=== PATIENT | male | born 1950 | race Caucasian/White ===

== ENCOUNTER → 2016-07-21 | Outpatient (CLI) | payer OTHER ==
[~2016-07-21] MED LIST: ACET-1311 PO; CYCL0.052 OPB; FAMO40TA6 PO; FENO160T PO; LVT/20 PO; MULT-506 PO; OXYC-57 PO; REFRESH OPB; VALS160T58 PO; [UNRECOGNIZED DRUG - CODE] PO
== END | disposition home or self-care (01) ==
LOC: C.LAB 11:42
PROVIDERS: ATTEND Urology
DX: C61 Malignant neoplasm of prostate (principal); N30.40 Irradiation cystitis without hematuria; K40.91 Unilateral inguinal hernia, without obstruction or gangrene, recurrent; D17.6 Benign lipomatous neoplasm of spermatic cord; E78.00 Pure hypercholesterolemia, unspecified; I10 Essential (primary) hypertension; N52.9 Male erectile dysfunction, unspecified; Z85.46 Personal history of malignant neoplasm of prostate; Z90.49 Acquired absence of other specified parts of digestive tract; Z90.5 Acquired absence of kidney; Z80.3 Family history of malignant neoplasm of breast; Z82.49 Family history of ischemic heart disease and other diseases of the circulatory system

== ENCOUNTER 2016-07-29 05:12 | Day surgery (SDC) | payer OTHER ==
[2016-07-21 12:12] LABS: BASO % 0.4 %; BASO ABS # 0.03 K/uL (0-0.2); COMPLETE YES; EOS % 1.8 %; HEMATOCRIT 44.6 % (42-52); IG% 0.4 %; LYMPH % 20.9 %; LYMPH ABS # 1.43 K/uL (1.2-3.4); MEAN CELL VOLUME 91.8 fL (80-100); MEAN CORPUSCULAR HEMOGLOBIN 32.7 pg (25-34); MEAN CORPUSCULAR HGB CONC 35.7 g/dl (32-36); MEAN PLATELET VOLUME 10.2 fL (7.4-10.4); MONO % 10.7 %; NEUT % 65.8 %; PLATELET COUNT 229 K/uL (130-400); RED BLOOD COUNT 4.86 M/uL (4.7-6.1); WHITE BLOOD COUNT 6.84 K/uL (4.8-10.8)
--- NOTE | 2016-07-21 12:36 | PAT Medication Instructions ---
Service Date Jul 21, 2016. Current Home Medication List Acetaminophen (Tylenol), 325 MG PO DIRECTED Chlorpheniramine-Acetaminophen (Ra Cold & Flu 2-325 mg), 1 TAB PO BID PRN for N Cyclosporine (Ophth) (Restasis), 1 DROP OPB BID Famotidine (Pepcid), 40 MG PO QPM Fenofibrate (Tricor), 160 MG PO QAM Multivitamin (Multivitamin), 1 TAB PO QAM Valsartan/Hctz (Diovan Hct 160MG/12.5MG), 1 TAB PO QAM Vardenafil (Levitra), 20 MG PO DIRECTED Medication Instructions For Your Scheduled Surgery - Hold the following medications the morning of surgery: Valsartan/Hctz (Diovan Hct 160MG/12.5MG), 1 TAB PO QAM Multivitamin (Multivitamin), 1 TAB PO QAM Fenofibrate (Tricor), 160 MG PO QAM Chlorpheniramine-Acetaminophen (Ra Cold & Flu 2-325 mg), 1 TAB PO BID PRN for N Vardenafil (Levitra), 20 MG PO DIRECTED - Take the following medications the morning of surgery with a sip of water: Cyclosporine (Ophth) (Restasis), 1 DROP OPB BID Acetaminophen (Tylenol), 325 MG PO DIRECTED - Take the following medications as scheduled the night before surgery: Famotidine (Pepcid), 40 MG PO QPM Cyclosporine (Ophth) (Restasis), 1 DROP OPB BID Chlorpheniramine-Acetaminophen (Ra Cold & Flu 2-325 mg), 1 TAB PO BID PRN for N Acetaminophen (Tylenol), 325 MG PO DIRECTED Vardenafil (Levitra), 20 MG PO DIRECTED If you have any questions please call us at [phone] (Allie Jean-Baptiste PA-C) or [phone] or [phone]
[2016-07-21 12:42] LABS: BUN/CREATININE RATIO 14.3 (10-20); CALCIUM 9.9 mg/dl (8.5-10.1); CREATININE 1.6 mg/dl (0.60-1.40); POTASSIUM 4.1 mmol/L (3.5-5.1)
--- NOTE | 2016-07-21 13:22 | DIAGNOSTIC IMAGING REPORT ---
CHEST PREADMISSION(PA/LAT) CLINICAL HISTORY: Preoperative evaluation COMPARISON STUDY: Chest radiograph September 21, 2012 FINDINGS: Mild elevation of the right hemidiaphragm is unchanged. There is no pneumothorax or pleural effusion. There is no evidence of pulmonary edema. Cardiac size is normal. Mediastinal contours are normal. No consolidation is identified. The appearance of the chest is unchanged. IMPRESSION: No acute cardiopulmonary findings. Electronically signed by: Gilbert Mei M.D. 07/21/2016 1:20 PM
[~2016-07-29] VITALS: Ht 182.9 cm; Wt 99.7 kg
[~2016-07-29 05:12] MED LIST changes: -OXYC-57 PO; -REFRESH OPB
[2016-07-29] MEDS ORDERED: REFRESH OPB (05:41)
[2016-07-29 05:45] VITALS: BP 166/81; PULSE 81; TEMP 37.1; O2SAT 95; Ht 182.9 cm; Wt 99.7 kg
[2016-07-29] MEDS ORDERED: LACTATED RINGER'S 1000ML 1,000 ML IV SCH ×2 (06:00→08:30)
--- NOTE | 2016-07-29 06:24 | History & Physical Bridge Note ---
H&P Re-Evaluation Bridge Note: I have examined the patient, reviewed the History & Physical and in the interval since the performance of the History & Physical I have noted the following changes of clinical significance: No changes noted pt marked to be around
[2016-07-29] MEDS ORDERED: PROPOFOL IV EMULSION 10 MG/ML 20 ML VIAL IV ONE (06:54)
[2016-07-29] MEDS ORDERED: LIDOCAINE HCL 2% 2 ML VIAL (20MG/ML) ONE (06:54)
[2016-07-29] MEDS ORDERED: FENTANYL CITRATE INJ 50 MCG/1 ML 2 ML VIAL ONE ×2 (06:55→07:47)
[2016-07-29] MEDS ORDERED: MIDAZOLAM HCL 1 MG/ML 2ML VIAL ONE (06:55)
[2016-07-29] MEDS ORDERED: SUCCINYLCHOLINE 100MG/5ML SYR IV ONE (07:48)
[2016-07-29] MEDS ORDERED: PHENYLEPHRINE 100MCG/ML 5ML SYR ONE (08:14)
[2016-07-29] MEDS ORDERED: EpHEDrine SULFATE 50MG/5ML SYR ONE (08:14)
[2016-07-29] MEDS ORDERED: BACITRACIN 50000 UNIT VIAL IR ONE (08:15)
[2016-07-29] MEDS ORDERED: BUPIVACAINE 0.5 % 5 MG/1 ML MPF 30ML VIAL INJ ONE (08:15)
[2016-07-29] MEDS ORDERED: ONDANSETRON INJ 2 MG/ML 2 ML VIAL IV PRN ×2 (08:30→09:00)
[2016-07-29] MEDS ORDERED: MoRPHine SULFATE 2 MG/ML CARP IV PRN (08:30)
[2016-07-29] MEDS ORDERED: OXYCODONE/ACETAMINOPHEN 5-325 TAB PO PRN (08:30)
[2016-07-29] MEDS ORDERED: OXYC-57 PO (08:32)
--- NOTE | 2016-07-29 08:34 | Discharge Instructions ---
Discharge Instructions Visit Reason for Visit: Recurrent Right Inguinal Hernia Discharge Discharge Diagnosis / Problem: repair of hernia with mesh Discharge Goals Goal(s): Decrease discomfort Activity Recommendations Activity Limitations: per Instructions/Follow-up section Lifting Limitations: no more than 10 pounds Shower/Bathe: tomorrow Driving or Machine Use: resume 3 days after discharge Anesthesia . Post Anesthesia Instructions: If you have had General Anesthesia or IV Sedation: * Do not drive today. * Resume driving when surgeon permits. * Do not make important decisions or sign legal documents today. * Call surgeon for: 1. Temperature elevations greater than 101 degrees F. 2. Uncontrollable pain. 3. Excessive bleeding. 4. Persistent nausea and vomiting. 5. Medication intolerance (nausea, vomiting or rash). * For nausea and vomiting use only clear liquids such as: tea, soda, bouillon until nausea subsides, then gradually increase diet as tolerated. * If you have any concerns or questions, call your surgeon's office. If physician is unavailable and it is an emergency, call 911 or go to the nearest emergency room. . Instructions / Follow-Up Instructions / Follow-Up Dr. Garcia in 1 week, call [phone] if you do not already have an appt Ice groin off and on alternating every 20 minutes until bedtime Diet Recommendations Recommended Home Diet: no limitations Procedures Procedures Performed: Right Recurrent Open Direct Inguinal Hernia Repair with ProLite Mesh and Excision of Lipoma of the Cord Pending Studies Studies pending at discharge: no Medical Emergencies . Who to Call and When: Medical Emergencies: If at any time you feel your situation is an emergency, please call 911 immediately. . Non-Emergent Contact Non-Emergency issues call your: Surgeon Call Non-Emergent contact if: you have a fever, temperature is above 101.5, your pain is not controlled, wound has increased redness, wound has increased pain . . "Provider Documentation" section prepared by Charan Bermudez.
--- NOTE | 2016-07-29 08:37 | [facility] Post Operative Brief Note ---
Immediate Operative Summary Operative Date Jul 29, 2016. Pre-Operative Diagnosis Recurrent Right Inguinal Hernia Post-Operative Diagnosis Right Recurrent Direct Inguinal Hernia and Lipoma of the Cord Procedure(s) Performed Right Recurrent Open Direct Inguinal Hernia Repair with ProLite Mesh (plug and patch)and Excision of Lipoma of the Cord Surgeon Dr. Mamadou Garcia Trainman Surgeon(s) Charan Bermudez PA-C Estimated Blood Loss 5mL Findings large direct defect involving the whole floor Specimens A: Cord Lipoma Anesthesia 1 %xyl preemptive
[2016-07-29] MEDS ORDERED: LACTATED RINGER'S 1000ML 1,000 ML IV ONE (08:45)
--- NOTE | 2016-07-29 08:48 | Anesthesiology Progress Note ---
Anesthesia Post Op Note Date & Time Jul 29, 2016 at 08:47 Vital Signs Pain Intensity: 0 Vital Signs Past 12 Hours Date Time Temp Pulse Resp B/P Pulse Ox O2 Delivery O2 Flow Rate FiO2 07/29/16 05:45 37.1 81 20 166/81 95 Room Air Notes Mental Status: alert / awake / arousable, participated in evaluation Pt Amnestic to Procedure: Yes Nausea / Vomiting: adequately controlled Pain: adequately controlled Airway Patency, RR, SpO2: stable & adequate BP & HR: stable & adequate Hydration State: stable & adequate Anesthetic Complications: no major complications apparent
--- NOTE | 2016-07-29 08:52 | Medical Student: [facility] ---
Immediate Operative Summary Operative Date Jul 29, 2016. Pre-Operative Diagnosis Recurrent Right Inguinal Hernia Post-Operative Diagnosis Recurrent Right Inguinal Hernia, Spermatic Lipoma Procedure(s) Performed Open right inguinal hernia reduction, mesh implant, removal of lipoma Surgeon Dr. Garcia Men[employer] Coach Surgeon(s) Charan Bermudez Estimated Blood Loss 5mL Findings Lipoma, samples obtained. Specimens Lipoma Anesthesia General Disposition Recovery Room / PACU
[2016-07-29] MEDS ORDERED: HYDROmorphone INJ 1 MG/ML SYR ONE (08:55)
[2016-07-29] MEDS: HYDROmorphone INJ 2 MG/ML SYR/VIAL IV PRN ×2 (08:57→09:10)
[2016-07-29] MEDS ORDERED: EpHEDrine SULFATE INJ 50 MG/ML AMP IV PRN (09:00)
[2016-07-29] MEDS ORDERED: ATROPINE SULFATE 0.1 MG/ML 5ML SYR IV PRN (09:00)
[2016-07-29] MEDS ORDERED: PHENYLEPHRINE 100MCG/ML 5ML SYR IV PRN (09:00)
--- NOTE | 2016-07-29 09:11 | OPERATIVE REPORT ---
DATE OF OPERATION: 07/29/2016 PREOPERATIVE DIAGNOSIS: Recurrent right inguinal hernia. POSTOPERATIVE DIAGNOSIS: Recurrent right direct inguinal hernia, lipoma of the cord. PROCEDURE: Repair with patch and plug technique with Marlex and excision lipoma of the cord. SURGEON: Dr. Garcia. MANGA ARTIST: Rivera Bermudez PA-C. OPERATION AND FINDINGS: SUMMARY: The patient was brought into the operating room. Right lower quadrant was scrubbed solution and properly draped. Systemic antibiotics was given. Had LMA anesthesia. We used some preemptive local analgesia 1% Xylocaine with epinephrine to infiltrate 2 fingerbreadths medial anterior superior iliac crest and subfascial external oblique and some would be used later in the intramuscular area. At this point, we made an incision curvilinear and parallel to the inguinal ligament, deepened through subcutaneous tissue. Some vessels were ligated with 2-0 silk. We went down through the Tierra's fascia onto the external oblique, more local was used underneath the external oblique. The external oblique was opened along the course of its fibers. As soon as we opened it we could see bulging of the fatty tissue through this area. We took it all the way up to the external ring where we elevated the 2 flaps of the external oblique with hemostats and there was identified, it was very frail looking. We placed underneath hemostats. We took it off the operative field. At this point, we then elevated the cord and its structures and identified over a Leticia drain. We identified the patient had significant, pretty much the whole wall defect in the indirect area. Just to get this out of the way we returned it retroperitoneally, closed loosely with interrupted 3-0 silk sutures to get out of our way. Attention was turned to the internal ring where I felt that we used a piece of Marlex mesh and cut it appropriately and placed it in the indirect area. I used a silk suture to take control of it until we would suture it together to the patch. We then went on around the cord towards the internal ring where we identified some of the lipomatous tissue coming along the cord we resected it. We then closed the internal ring with interrupted 3-0 silk suture. At this point a sheet of Marlex mesh was brought onto the field and onlaid down to the symphysis pubis, shelving portion of the inguinal ligament around the internal ring area to reconstruct it, could only accommodate the tip of a hemostat. We then elevated the silk suture that was holding onto the plug and then sutured that onto the patch with another 3-0 silk suture. Of note, there was no indirect hernia. The area was checked for hemostasis and appeared satisfactory. We returned the cord underneath the external oblique fascia along with the nerve. Local anesthetic was used around the conjoined tendon superiorly. Of note, we intentionally left the Marlex mesh a little bit loose. Of note, also once we were starting to repair the patient needed to be converted to a general anesthetic because he was pushing too much to do the procedure. Subcutaneous tissue closed with 2-0 Vicryl and joyce for skin edges. Dressing was applied. The procedure was tolerated well by the patient. Estimated blood loss approximately 5 mL. The patient was taken to recovery room in good condition. I attest to the content of the Intraoperative Record and any orders documented therein. Any exceptio ns are noted below.
[2016-07-29 09:30] VITALS: BP 135/84; PULSE 74; TEMP 36.7; O2SAT 93
[2016-07-29] MEDS ORDERED: ACETAMINOPHEN 325 MG TAB ONE (09:52)
[2016-07-29 10:00] VITALS: BP 131/84; PULSE 75; O2SAT 95
[2016-07-29] MEDS ORDERED: NURSING VERBAL MED ORDER ONE (10:00)
[2016-07-29 10:30] VITALS: BP 148/87; PULSE 71; TEMP 36.8; O2SAT 97
== END 2016-07-29 11:00 | disposition home or self-care (01) ==
LOC: C.ACU 05:12
PROVIDERS: ATTEND Surgery
DX: K40.91 Unilateral inguinal hernia, without obstruction or gangrene, recurrent (principal); D17.6 Benign lipomatous neoplasm of spermatic cord; E78.00 Pure hypercholesterolemia, unspecified; I10 Essential (primary) hypertension; N52.9 Male erectile dysfunction, unspecified; Z85.46 Personal history of malignant neoplasm of prostate; Z90.49 Acquired absence of other specified parts of digestive tract; Z90.5 Acquired absence of kidney; Z80.3 Family history of malignant neoplasm of breast; Z82.49 Family history of ischemic heart disease and other diseases of the circulatory system

== ENCOUNTER 2016-09-16 07:57 | Day surgery (SDC) | payer OTHER ==
[~2016-09-16] VITALS: Ht 182.9 cm; Wt 99.7 kg
[~2016-09-16 07:57] MED LIST changes: -ACET-1311 PO; +LACTATED RINGER'S 1000ML 1,000 ML IV SCH; +REFRESH OPB; -[UNRECOGNIZED DRUG - CODE] PO
[2016-09-16 08:31] VITALS: BP 143/78; PULSE 73; TEMP 37; O2SAT 96; Ht 182.9 cm; Wt 99.7 kg
[2016-09-16] MEDS ORDERED: LIDOCAINE HCL 2% 2 ML VIAL (20MG/ML) ONE (08:33)
[2016-09-16] MEDS ORDERED: PROPOFOL IV EMULSION 10 MG/ML 20 ML VIAL IV ONE (08:33)
[2016-09-16] MEDS ORDERED: DEXAMETHASONE SOD INJ 4 MG/ML VIAL ONE (08:33)
[2016-09-16] MEDS ORDERED: FENTANYL CITRATE INJ 50 MCG/1 ML 2 ML VIAL ONE ×2 (08:33→12:33)
[2016-09-16] MEDS ORDERED: MIDAZOLAM HCL 1 MG/ML 2ML VIAL ONE (08:33)
[2016-09-16] MEDS ORDERED: ONDANSETRON INJ 2 MG/ML 2 ML VIAL ONE (08:33)
--- NOTE | 2016-09-16 10:23 | History & Physical Bridge Note ---
H&P Re-Evaluation Bridge Note: I have examined the patient, reviewed the History & Physical and in the interval since the performance of the History & Physical I have noted the following changes of clinical significance: No changes noted pt marked times 2 at bedside
[2016-09-16] MEDS ORDERED: LACTATED RINGER'S 1000ML 1,000 ML IV PRN (10:25)
[2016-09-16] MEDS ORDERED: FENTANYL CITRATE INJ 50 MCG/1 ML 2 ML VIAL IV PRN (10:30)
[2016-09-16] MEDS ORDERED: ONDANSETRON INJ 2 MG/ML 2 ML VIAL IV PRN ×2 (10:30→12:45)
[2016-09-16] MEDS ORDERED: BACITRACIN 50000 UNIT VIAL ONE (10:46)
[2016-09-16] MEDS ORDERED: BUPIVACAINE 0.5 % 5 MG/1 ML MPF 30ML VIAL ONE (10:46)
[2016-09-16] MEDS ORDERED: OXYC-57 PO (10:58)
--- NOTE | 2016-09-16 11:00 | Discharge Instructions ---
Discharge Instructions Visit Reason for Visit: Left Inguinal Hernia, Umbilical Hernia Discharge Discharge Diagnosis / Problem: Inguinal and umbilical hernia repairs Activity Recommendations Activity Limitations: as noted below Lifting Limitations: no more than 10 pounds Shower/Bathe: tomorrow Driving or Machine Use: resume 3 days after discharge (if not taking Percocet) Anesthesia . Post Anesthesia Instructions: If you have had General Anesthesia or IV Sedation: * Do not drive today. * Resume driving when surgeon permits. * Do not make important decisions or sign legal documents today. * Call surgeon for: 1. Temperature elevations greater than 101 degrees F. 2. Uncontrollable pain. 3. Excessive bleeding. 4. Persistent nausea and vomiting. 5. Medication intolerance (nausea, vomiting or rash). * For nausea and vomiting use only clear liquids such as: tea, soda, bouillon until nausea subsides, then gradually increase diet as tolerated. * If you have any concerns or questions, call your surgeon's office. If physician is unavailable and it is an emergency, call 911 or go to the nearest emergency room. . Instructions / Follow-Up Instructions / Follow-Up Dr. Garcia's office in 1 week, call [phone] if you do not already have an appt or for any questions Ice left groin off and on alternating every 20 minutes until bedtime Diet Recommendations Recommended Home Diet: no limitations Pending Studies Studies pending at discharge: no Medical Emergencies . Who to Call and When: Medical Emergencies: If at any time you feel your situation is an emergency, please call 911 immediately. . Non-Emergent Contact Call Non-Emergent contact if: you have a fever, temperature is above 101.5, your pain is not controlled, wound has increased redness . . "Provider Documentation" section prepared by Charan Bermudez.
[2016-09-16] MEDS ORDERED: CEFAZOLIN SOD 1 GM VIAL ONE (11:21)
[2016-09-16] MEDS ORDERED: ROCURONIUM BROMIDE 10 MG/ML 5 ML VIAL ONE (11:36)
[2016-09-16] MEDS ORDERED: NEOSTIGMINE METHYLSULFATE 5 MG/5 ML SYR ONE (11:36)
[2016-09-16] MEDS ORDERED: GLYCOPYRROLATE INJ 0.2 MG/ML VIAL ONE (11:36)
--- NOTE | 2016-09-16 12:24 | [facility] Post Operative Brief Note ---
Immediate Operative Summary Operative Date Sep 16, 2016. Pre-Operative Diagnosis Left inguinal hernia rec, umbilical hernia inc Post-Operative Diagnosis Left inguinal hernia direct and indirect , incumbilical hernia lipoma cord Procedure(s) Performed Incarcerated umbilical hernia repair with mesh, Direct and indirect left inguinal hernia repair with mesh, Excision lipoma of cord Surgeon Dr Mamadou Garcia [employer] Expert Surgeon(s) Charan Bermudez PA-C Estimated Blood Loss 3ml Findings inc umbilical hernia, rec direct and indirect hernia lipoma cord Specimens A. Lipoma of cord
[2016-09-16] MEDS ORDERED: OXYCODONE/ACETAMINOPHEN 5-325 TAB PO PRN (12:45)
[2016-09-16] MEDS ORDERED: MoRPHine SULFATE 2 MG/ML CARP IV PRN (12:45)
--- NOTE | 2016-09-16 12:51 | Medical Student: [facility] ---
Immediate Operative Summary Operative Date Sep 16, 2016. Pre-Operative Diagnosis Reccurent left inguinal hernia and umbilical hernia Post-Operative Diagnosis Recurrent left combined direct/indirect inguinal hernia, umbilical hernia Procedure(s) Performed Inguinal and umbilical hernia repairs with mesh Surgeon Dr. Garcia Photography Colorist Surgeon(s) Charan Bermudez PA-C Estimated Blood Loss 3cc Findings incarcerated fat umbilical hernia. Direct left inguinal hernia. Lipoma indirect left inguinal hernia. Specimens Lipoma from indirect inguinal hernia. Complication(s) None Disposition Recovery Room / PACU
--- NOTE | 2016-09-16 13:02 | OPERATIVE REPORT ---
DATE OF OPERATION: 09/16/2016 SURGEON: Dr. Garcia. CARPORT ERECTOR: Rivera Bermudez PA-C. PREOPERATIVE DIAGNOSES: Recurrent left inguinal hernia and incarcerated umbilical hernia. POSTOPERATIVE DIAGNOSES: Left recurrent direct and indirect inguinal hernia, lipoma of the cord, incarcerated umbilical hernia. PROCEDURE: Open repair of left direct and indirect inguinal hernia with Marlex mesh and excision lipoma of the cord. Repair of incarcerated umbilical hernia with Marlex mesh. SUMMARY: The patient was brought into the operating room, we then properly shaved the abdomen above the umbilical area all the way down to the left lower quadrant and beyond properly draped. Time-out was had. An incision was made parallel to the inguinal ligament pretty much utilizing the previous incision after preemptive local analgesia 0.5% Marcaine without epinephrine to infiltrate medial to the anterior superior iliac crest. Once we made an incision in subcutaneous tissue we approached the plane of the external oblique more laterally and were able to elevate the tissue above it and found the patient was having pretty much at the external ring a significant amount of fatty tissue protruding through. We then opened the external oblique along the course of its fibers. Nerves were identified, there was actually 2 of them, one superiorly which was splayed out and one inferiorly. The superior one was likely ilioinguinal nerve. We then we elevated the cord structures from the symphysis pubis over a Leticia drain, a significant amount of fatty tissue was identified which freed from the cord and actually found that the patient had a direct hernia almost a pantaloon indirect component. There was no true hernia sac in the indirect component was pushing through the wall in the inferior epigastric vessels. We at this point returned all this tissue retroperitoneal by using some 3-0 silk interrupted suture to approximate the few fibers of the transversalis fascia. The patient also had a large lipoma of the cord extending down into the external ring and beyond. We had taken a route that was about 10 cm inside, resected at its base right at the internal ring, ligating with 2-0 silk and returning and closing the internal ring with 3-0 interrupted silk suture. We then brought a sheet of Marlex mesh and onlayed it onto the symphysis pubis, shelving portion and above on to the conjoined tendon and making sure we exteriorized as much as possible underneath the external oblique fascia. We reconstructed the internal ring after applying the 2 nerves that were retracted along the cord structures. The internal ring could only accommodate the tip of a hemostat. 3-0 silk suture was then used to close the external oblique on top of the mesh and the lipoma tissue that was still around the cord structures, which we did not dissect completely. Subcutaneous tissues with 3-0 Dexon and joyce for skin edges. An incision was made in the umbilical area to the left of the umbilicus going cephalad probably about 2 inches long, deepened through subcutaneous tissue. We were able to identify and free the incarcerated omental tissue from the umbilical area, identifying the sac, returned all this in preperitoneal, the defect was approximately 1.5 cm at most 2 in diameter. At this point, we were extraperitoneal, I elected not to close this, but a piece of Marlex mesh which was approximately 4.5 cm or so in size. We used 2 rows of continuous sutures, one just along the fascia itself and bridging the defect with Marlex and 1 cm redundant tissue above that was tacked to the anterior abdominal wall using 2-0 Prolene suture. The repair appeared to be solid and tension free, subcutaneous tissue was brought back together with 2-0 Dexon, joyce for skin edges. Dressing was applied. The procedure was tolerated well by the patient. Estimated blood loss approximately 3 mL. The patient was taken to the recovery room in good condition. I attest to the content of the Intraoperative Record and any orders documented therein. Any exceptions are noted below. MELLISA
--- NOTE | 2016-09-16 13:07 | Anesthesiology Progress Note ---
Anesthesia Post Op Note Date & Time Sep 16, 2016 at 13:06 Vital Signs Pain Intensity: 4 Vital Signs Past 12 Hours Date Time Temp Pulse Resp B/P Pulse Ox O2 Delivery O2 Flow Rate FiO2 09/16/16 13:00 66 14 112/69 95 Room Air 09/16/16 12:50 69 14 122/70 99 Mask 10 09/16/16 12:40 71 14 116/75 99 Mask 10 09/16/16 12:31 36.4 71 14 134/85 100 Mask 10 09/16/16 08:31 37 73 18 143/78 96 Room Air Notes Mental Status: alert / awake / arousable, participated in evaluation Pt Amnestic to Procedure: Yes Nausea / Vomiting: adequately controlled Pain: adequately controlled Airway Patency, RR, SpO2: stable & adequate BP & HR: stable & adequate Hydration State: stable & adequate Anesthetic Complications: no major complications apparent Pt doing well. No jaw pain this time.
[2016-09-16 13:15] VITALS: BP 119/66; PULSE 63; TEMP 36.8; O2SAT 95
[2016-09-16] MEDS ORDERED: LACTATED RINGER'S 1000ML 1,000 ML IV SCH (13:30)
[2016-09-16 13:45] VITALS: BP 130/85; PULSE 70; TEMP 36.3; O2SAT 95
[2016-09-16 14:15] VITALS: BP 131/81; PULSE 70; TEMP 36.5; O2SAT 96
== END 2016-09-16 15:05 | disposition home or self-care (01) ==
LOC: C.ACU 07:57
PROVIDERS: ATTEND Surgery
DX: K42.0 Umbilical hernia with obstruction, without gangrene (principal); K40.91 Unilateral inguinal hernia, without obstruction or gangrene, recurrent; D17.6 Benign lipomatous neoplasm of spermatic cord; M19.90 Unspecified osteoarthritis, unspecified site; C61 Malignant neoplasm of prostate; N30.40 Irradiation cystitis without hematuria; R31.0 Gross hematuria; R31.9 Hematuria, unspecified; E78.00 Pure hypercholesterolemia, unspecified; I10 Essential (primary) hypertension

== ENCOUNTER → 2016-10-22 | Outpatient (CLI) | payer OTHER ==
[~2016-10-22] MED LIST changes: -LACTATED RINGER'S 1000ML 1,000 ML IV SCH; +OXYC-57 PO
== END | disposition home or self-care (01) ==
LOC: C.LABMFLN 08:00
PROVIDERS: ATTEND Urology
DX: R31.0 Gross hematuria (principal)

== ENCOUNTER → 2016-10-28 | Outpatient (CLI) | payer OTHER | END | disposition home or self-care (01) | LOC: C.PATHSPEC 11:16 | PROVIDERS: ATTEND Urology | DX: N52.9 Male erectile dysfunction, unspecified (principal); R31.29 Other microscopic hematuria ==

== ENCOUNTER → 2017-04-21 | Outpatient (CLI) | payer OTHER ==
[~2017-04-21] MED LIST changes: -OXYC-57 PO
== END | disposition home or self-care (01) ==
LOC: C.PATHSPEC 17:13
PROVIDERS: ATTEND Urology
DX: R31.9 Hematuria, unspecified (principal); N30.40 Irradiation cystitis without hematuria

== ENCOUNTER → 2017-04-29 | Outpatient (CLI) | payer OTHER | END | disposition home or self-care (01) | LOC: C.LABMFLN 08:43 | PROVIDERS: ATTEND Urology | DX: C61 Malignant neoplasm of prostate (principal); R31.9 Hematuria, unspecified; N30.40 Irradiation cystitis without hematuria ==

== ENCOUNTER → 2017-08-31 | Outpatient (CLI) | payer OTHER ==
--- NOTE | 2017-08-31 14:00 | DIAGNOSTIC IMAGING REPORT ---
BONE SCAN WHOLE BODY HISTORY: Prostate carcinoma C61 Malignant neoplasm of [id number] RADIOTRACER: 26.146 mCi Tc-99m MDP STUDY/IMAGES: Planar anterior and posterior whole body imaging was performed 3 hours following the intravenous administration of radiotracer. COMPARISON: None. FINDINGS: Unilateral activity is noted within the left kidney. There are findings of mild scattered degenerative activity of the right knee, acromioclavicular joints bilaterally, as well as scattered foci within the cervical thoracic and lumbar region. Given the distribution suggestive of degenerative changes. No evidence for metastatic bone disease based on this exam. IMPRESSION: 1. Study is negative for metastatic bone disease. 2. 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 The above report was generated using voice recognition software. It may contain grammatical, syntax or spelling errors. Electronically signed by: Jesus Odell M.D. 08/31/2017 1:59 PM Dictated Date/Time: 08/31/2017 1:57 PM
== END | disposition home or self-care (01) ==
LOC: C.NUCL 09:49
PROVIDERS: ATTEND Urology
DX: C61 Malignant neoplasm of prostate (principal)

== ENCOUNTER → 2017-09-02 | Outpatient (CLI) | payer OTHER | END | disposition home or self-care (01) | LOC: C.LABMFLN 08:45 | PROVIDERS: ATTEND Urology | DX: C61 Malignant neoplasm of prostate (principal) ==

== ENCOUNTER → 2018-03-05 | Outpatient (CLI) | payer OTHER | END | disposition home or self-care (01) | LOC: C.LABMFLN 11:50 | PROVIDERS: ATTEND Urology | DX: C61 Malignant neoplasm of prostate (principal); N30.40 Irradiation cystitis without hematuria ==

== ENCOUNTER → 2018-03-09 | Outpatient (CLI) | payer OTHER | END | disposition home or self-care (01) | LOC: C.PATHSPEC 10:30 | PROVIDERS: ATTEND Urology | DX: N30.40 Irradiation cystitis without hematuria (principal) ==